=== PATIENT | female | born 1985 | race Hispanic/Latino ===

== ENCOUNTER 2023-10-21 11:13 | Day surgery (SDC) | payer BC ==
[2023-10-20 15:47] VITALS: BMI 31.3
[2023-10-21 12:07] LABS: #Eosinphils 0.1 thou/uL (0.0-0.7); #Monocytes 0.4 thou/uL (0.11-0.59); #Neutrophils 4.8 thou/uL (1.40-6.50); %Basophils 0.3 % (0.0-1.0); %Eosinophils 1.2 % (0.0-10.0); %Lymphocytes 28.7 % (21.0-51.0); %Monocytes 5.9 % (0.0-10.0); %Neutrophils 63.8 % (42.0-75.0); Hematocrit 34.2 % (36.0-47.0); Mean Corpuscular HGB CONC 32.2 g/dL (32.0-36.0); Mean Corpuscular Hemoglobin 25.9 pg (27.0-31.0); Mean Corpuscular Volume 80.7 fl (78.0-98.0); Mean Platelet Volume 11.9 fL (7.4-10.4); Platelet Count 233 10x3/uL (130-400); RBC Distribution Width 16.6 % (11.5-14.5); Red Blood Cell (RBC) Count 4.24 mill/uL (4.20-5.40); White Blood Cell (WBC) Count 7.5 10x3/uL (4.8-10.8)
[2023-10-21 12:21] LABS: BHCG - Serum Negative (NEGATIVE); Pregs Control Background? CLEAR/WHITE (CLR/WHITE); Pregs Control Bar Appear? YES (CONTROL BAR)
[2023-10-21 12:28] LABS: Anion Gap 14 mmol/L (10-20); BUN (Urea Nitrogen) 12 mg/dL (7.0-18.7); Calc. Creatinine Clearance 145 mL/min (70-130); Calcium 9.1 mg/dL (7.8-10.44); Carbon Dioxide 19 mmol/L (22-29); Chloride 108 mmol/L (98-107); Estimated GFR 115; Glucose 83 mg/dL (70-105); Potassium 3.8 mmol/L (3.5-5.1); Sodium 137 mmol/L (136-145)
[2023-10-21] MEDS ORDERED: Ketorolac Tromethamine 30 MG/ML VIAL ONE (13:11)
[2023-10-21] MEDS ORDERED: Acetaminophen 500 MG TAB ONE (13:12)
[2023-10-21] MEDS ORDERED: Bupivacaine 0.25% HCL 30 ML VIAL ONE (13:27)
[2023-10-21] MEDS ORDERED: EPINEPHrine 1 MG/ML VIAL ONE (13:27)
[2023-10-21] MEDS ORDERED: Lidocaine 1% PF 5 ML VIAL ONE ×2 (13:34→13:45)
[2023-10-21] MEDS ORDERED: fentaNYL PF 100 MCG/2 ML SYRINGE ONE (13:34)
[2023-10-21] MEDS ORDERED: Ondansetron PF 4 MG/2 ML Vial ONE ×2 (13:34→13:45)
[2023-10-21] MEDS ORDERED: Dexamethasone 20 MG/5 ML VIAL ONE ×2 (13:34→13:45)
[2023-10-21] MEDS ORDERED: PROPOFOL 20 ML ONE (13:34)
[2023-10-21] MEDS ORDERED: Rocuronium Bromide 10 MG/ML (10ML VIAL) ONE ×2 (13:34→13:45)
[2023-10-21] MEDS ORDERED: CEFAZOLIN 2 GM VIAL ONE (13:38)
[2023-10-21] MEDS ORDERED: HYDROmorphone 0.5 MG/0.5 ML SYRINGE ONE (13:38)
[2023-10-21] MEDS ORDERED: Sodium Chloride 0.9% 100 ML ONE (13:39)
[2023-10-21] MEDS ORDERED: Succinylcholine 200 MG/10 ml SYRINGE FS ONE (13:40)
[2023-10-21] MEDS ORDERED: PROPOFOL 200 MG/20 ML VIAL ONE (13:45)
[2023-10-21] MEDS ORDERED: NEOSTIGMINE 3 MG/3 ML SYR 3 MG/3 ML SYRINGE ONE ×2 (13:45→14:03)
[2023-10-21] MEDS ORDERED: Glycopyrrolate 0.2 MG/ML 5 ML SYRINGE ONE ×2 (13:45→14:03)
[2023-10-21] MEDS ORDERED: fentaNYL 50 mcg/mL 1 mL Vial ONE (15:00)
[2023-10-21] MEDS ORDERED: Morphine 2 MG/ML VIAL ONE ×2 (15:47→16:01)
[2023-10-21] MEDS ORDERED: HYDROcodone/Acetaminophen 5/325 mg Tablet ONE (16:21)
== END 2023-10-21 17:41 | disposition home or self-care (01) ==
LOC: SDC 11:13
PROVIDERS: ATTEND Specialist
PROC: 0FT44ZZ Resection of Gallbladder, Percutaneous Endoscopic Approach (ICD-10-PCS; principal; 2023-10-21)
DX: K80.10 Calculus of gallbladder with chronic cholecystitis without obstruction (principal); Z79.899 Other long term (current) drug therapy
CPT/HCPCS: 80048; 84703; 85025; 88304; C1889; J0171; J1100; J1170; J1885; J2272; J2405; J2704; J3010; J3490; S0020